=== PATIENT | female | born 1980 | race American Indian/Alaskan Native ===

== ENCOUNTER 2021-01-25 21:58 | Emergency (ER) | payer MEDICAID, OTHER ==
[~2021-01-25] VITALS: Ht 165.1 cm; Wt 91.8 kg
[2021-01-25 22:06] VITALS: BP 141/83
[2021-01-25] MEDS ORDERED: LIDOcaine 1% W/epiNEPHrine 1:200,000 10ml vial IJ ONE (22:50)
[2021-01-25] MEDS ORDERED: TETanus/Pertussis (Acell)/Diphther VAC/PF (Tdap-Adult) 0.5ml syringe IMVAC ONE (22:50)
[2021-01-25] MEDS ORDERED: SULF1TAB49 PO ×2 (22:51→22:52)
[2021-01-25] MEDS ORDERED: CEPH-585 PO (22:52)
[2021-01-25] MEDS ORDERED: LIDOcaine 1% W/epiNEPHrine 1:100,000 20ml vial IJ ONE (22:55)
== END 2021-01-25 23:43 | disposition home or self-care (01) ==
LOC: ER 21:59
DX: L02.414 Cutaneous abscess of left upper limb (principal); F17.200 Nicotine dependence, unspecified, uncomplicated; F15.90 Other stimulant use, unspecified, uncomplicated; Z79.2 Long term (current) use of antibiotics; Z79.899 Other long term (current) drug therapy; Z88.8 Allergy status to other drugs, medicaments and biological substances
CPT/HCPCS: 10060; 90471; 90715; 99283